=== PATIENT | male | born 1995 | race American Indian/Alaskan Native ===

== ENCOUNTER 2017-06-26 02:03 | Emergency (ER) | payer OTHER ==
[2017-06-26] MEDS ORDERED: GEODON IM ONE ×2 (02:29)
[2017-06-26 03:33] LABS: Basophils % (Auto) 0.6 % (0.0-1.8); Eosinophils % (Auto) 0.6 % (0.0-4.3); Hemoglobin 15.9 gm/dl (11.8-15.2); Lymphocytes # (Auto) 1.6 K/mm3 (1.2-5.4); Mean Corpuscular HGB Conc 34 % (32-34); Mean Corpuscular Hemoglobin 28 pg (28-32); Mean Corpuscular Volume 84 fl (84-94); Monocytes # (Auto) 0.3 K/mm3 (0.0-0.8); Monocytes % (Auto) 4.2 % (0.0-7.3); Platelet Count 202 K/mm3 (140-440); Red Blood Count 5.62 M/mm3 (3.65-5.03); Red Cell Distribution Width 13.8 % (13.2-15.2)
[2017-06-26 03:45] LABS: Bilirubin,Urine NEG (Negative); Blood,Urine SM (Negative); Color,Urine Straw (Yellow); Protein,Urine <15 mg/dL mg/dL (Negative); Urobilinogen,Urine < 2.0 mg/dL (<2.0); WBC,Urine < 1.0 /HPF (0.0-6.0)
[2017-06-26 03:47] LABS: BUN/Creatinine Ratio 9; Blood Urea Nitrogen 6 mg/dL (9-20); Calcium 8.8 mg/dL (8.4-10.2); Hemolysis Index 8
[2017-06-26 04:11] LABS: Amphetamine Screen,Urine PRESUMPTIVE NEGATIVE; Benzodiazepines Screen,Urine PRESUMPTIVE NEGATIVE; Cocaine Screen,Urine PRESUMPTIVE NEGATIVE; Methadone Screen,Urine PRESUMPTIVE NEGATIVE; Opiate Screen,Urine PRESUMPTIVE NEGATIVE
[2017-06-26 05:12] LABS: Cannabinoid Screen,Urine PRESUMPTIVE POSITIVE
--- NOTE | 2017-06-26 05:25 | Emergency Department Report ---
ED Psych HPI - General Stated Complaint: MENTAL HEALTH Time Seen by Provider: 06/26/17 02:28 Source: patient, police - History of Present Illness Initial Comments: Khris is a 21-year-old male with history of bipolar affective disorder and Tourette syndrome. His family called 911. Police brought him to the ER. He has persistent thoughts of suicide. "I don't want to live anymore. I don't want to be here anymore. I just want to leave. No one has to worry about me. My family does not care about me." He denies any physical complaints. He denies any homicidal ideation. - Related Data Home Medications Medication Instructions Recorded Confirmed Last Taken Unobtainable 06/26/17 06/26/17 Unknown Allergies Allergy/AdvReac Type Severity Reaction Status Date / Time No Known Allergies Allergy Verified 06/26/17 02:52 ED Review of Systems ROS: Stated complaint: MENTAL HEALTH Other details as noted in HPI Comment: All other systems reviewed and negative Constitutional: denies: chills, fever ENT: denies: throat pain Respiratory: denies: cough, shortness of breath Cardiovascular: denies: chest pain Endocrine: no symptoms reported Gastrointestinal: denies: abdominal pain, nausea, diarrhea Musculoskeletal: denies: back pain Neurological: denies: headache, weakness, paresthesias ED Past Medical Hx - Medications Home Medications: Home Medications Medication Instructions Recorded Confirmed Last Taken Type Unobtainable 06/26/17 06/26/17 Unknown History ED Physical Exam - General General appearance: alert, in no apparent distress - Head Head exam: Present: atraumatic, normocephalic - Eye Eye exam: Present: normal appearance - ENT ENT exam: Present: mucous membranes moist - Neck Neck exam: Present: normal inspection - Respiratory Respiratory exam: Present: normal lung sounds bilaterally. Absent: respiratory distress, wheezes, rales, rhonchi - Cardiovascular Cardiovascular Exam: Present: regular rate, normal rhythm. Absent: systolic murmur, diastolic murmur, rubs, gallop - GI/Abdominal GI/Abdominal exam: Present: soft, normal bowel sounds. Absent: distended, tenderness, guarding, rebound - Rectal Rectal exam: Present: deferred - Extremities Exam Extremities exam: Present: normal inspection - Back Exam Back exam: Present: normal inspection - Neurological Exam Neurological exam: Present: alert, oriented X3 - Psychiatric Psychiatric exam: Present: agitated, suicidal ideation - Skin Skin exam: Present: warm, dry, intact, normal color. Absent: rash ED Medical Decision Making - Lab Data Result diagrams: 06/26/17 03:15 06/26/17 03:15 Mr. North attempted to elope immediately upon arrival to the ER. He required chemical sedation for restraint. He is now sedated but protecting airway. Will need mental health assessment. Placed on 1013 with precautions. He is medically clear for psychiatric care. Critical care attestation.: If time is entered above; I have spent that time in minutes in the direct care of this critically ill patient, excluding procedure time. ED Disposition Clinical Impression: Suicidal ideation Disposition: [id number]/TX-[id number] PSY HOSP/PSY UNIT Is pt being admited?: No Does the pt Need Aspirin: No Condition: Stable
[2017-06-26] MEDS ORDERED: HABITROL TD ONE (17:00)
--- NOTE | 2017-06-27 13:35 | Consultation ---
History of Present Illness - Reason for Consult Consult date: 06/27/17 Reason for consult: Mental Health Evaluation Requesting physician: ANTHONY GUZMAN - Chief Complaint Chief complaint: "I am good" - History of Present Psychiatric Illness 21 y.o. male presenting to the ER for SI's. Today the patient is calm and cooperative during the assessment. He stated that he go into a argument with aunt and became upset. He denies making any statement about wanting to kill himself. He stated an hx of depression because he is . He stated that he feel sad and depressed because he struggle trying to live as a "black man." He stated that he socially smoke marijuana, but denies alcohol consumption (etoh ). He rate his depression 6/10, with 10 being the worse. He stated that he has a lot to live for. He denies SI/HI's and AVH's. He denies erratic sleep and a poor appetite. He stated that he took Zoloft for depression and Abilify for tourette's. He stated that he stop taking the Abilify, because he experienced side effects of the medication. Medications and Allergies Allergies Allergy/AdvReac Type Severity Reaction Status Date / Time No Known Allergies Allergy Verified 06/26/17 02:52 Home Medications Medication Instructions Recorded Confirmed Last Taken Type Unobtainable 06/26/17 06/26/17 Unknown History Past psychiatric history - Past Medical History Past Medical History: other (Tourettes) Past Surgical History: No surgical history - past Psychiatric treatment and history psychiatric treatment history: A hx of depression. Denies a fam psy hx. Hx of Depression. The patient denies a fam psy hx. - Social History Social history: lives with family Mental Status Exam - Vital signs Last Vital Signs Temp 98.6 F 06/27/17 10:39 Pulse 76 06/27/17 10:39 Resp 16 06/27/17 10:39 BP 136/87 06/27/17 10:39 Pulse Ox 98 06/27/17 10:39 - Exam Narrative exam: MSE: Appearance: calm, cooperative Behavior: regular eye contact Speech: regular rate and tone Mood: "depressed" Affect: congruent to mood Thought Process: circumstantial Thought Content: denies SI/HI's and AVH's Motor Activity: ambulatory, involuntary movement (Tourette's) Cognition: A/O x 3 Insight: variable Judgment: variable Results Result Diagrams: 06/26/17 03:15 06/26/17 03:15 All other labs normal. Assessment and Plan Assessment and plan: Impression: MDD. Hx of Tourette Syndrome. Cannabis Use DO. Today the patient is calm and cooperative during the assessment. Ddx: R/o Bipolar DO, R/O Substance Induced Mood DO Recommendation/Plan: Continue 1013 and gather collateral information to determine proper dispo. Start Zololf 50 mg PO Daily for depression and Risperdal 0.5 mg PO HS for Tourette Syndrome. Discussed possible metabolic side effects of Risperdal with patient. Also, discussed possible suicidality/ medication induced shravan with patient reference Zoloft.
[2017-06-27] MEDS: ZOLOFT PO SCH (17:37)
[2017-06-27] MEDS: RisperDAL PO SCH (22:04)
[2017-06-28] MEDS: ZOLOFT PO SCH (10:05)
[2017-06-28] MEDS ORDERED: HABITROL TD ONE (11:02)
--- NOTE | 2017-06-28 12:19 | Progress Note ---
Subjective - Reason for Consult Consult date: 06/28/17 Reason for consult: Psychiatry Follow-up - Chief Complaint Chief complaint: "Why I can't go home" 21 y.o. male presenting to the ER for SI's. Today the patient is irritable during the assessment after he was informed of his acceptance at [facility]. He stated in a loud voice that he didn't want to talk anymore. Mental Status Exam - Vital signs Last Vital Signs Temp 98.6 F 06/27/17 10:39 Pulse 55 L 06/28/17 08:40 Resp 17 06/28/17 08:40 BP 137/68 06/28/17 08:40 Pulse Ox 98 06/28/17 08:40 - Exam Narrative exam: MSE: Appearance: irritable Behavior: regular eye contact Speech: loud tone Mood: unable to assess Affect: congruent to mood Thought Process: circumstantial Thought Content: unable to assess Motor Activity: ambulatory Cognition: A/O x 3 Insight: unable to assess Judgment: unable to assess Assessment and Plan Impression: MDD. Hx of Tourette Syndrome. Cannabis Use DO. Today the patient is irritable during the assessment. Ddx: R/o Bipolar DO, R/O Substance Induced Mood DO Recommendation/Plan: Continue 1013 with placement to [facility] pending transport time. Continue Zoloft 50 mg PO Daily for depression and Risperdal 0.5 mg PO HS for Tourette Syndrome. Discussed possible metabolic side effects of Risperdal with patient. Also, discussed possible suicidality/medication induced shravan with patient reference Zoloft.
[2017-06-28] MEDS ORDERED: RisperDAL ONE (21:20)
[2017-06-28] MEDS: RisperDAL PO SCH (22:21)
[2017-06-29] MEDS: ZOLOFT PO SCH (10:40)
[2017-06-29 12:35] VITALS: BP 136/91
[2017-06-29] MEDS ORDERED: HABITROL TD ONE (13:04)
--- NOTE | 2017-06-29 14:26 | Progress Note ---
Subjective - Reason for Consult Consult date: 06/29/17 Reason for consult: Psychiatric Follow-up Evaluation - Chief Complaint Chief complaint: "I'm blessed."" Khris is a 21 year old male who presents to the ER for suicidal ideation. He has no PPHx. Today the patient is calm, cooperative, and compliant. Provider spoke with aunt Makenna Ngo at [phone]. She states " Khris is a good kid. This whole thing was blown out of proportion. We just had an argument because he did not want to come in the house. We miss him and we're ready for him to come back home." She verbalizes that patient does not have access to any weapons. Patient denies SI/HI, A/VH, and delusions. Mental Status Exam - Vital signs Last Vital Signs Temp 97.8 F 06/29/17 08:15 Pulse 113 H 06/29/17 08:15 Resp 16 06/29/17 08:30 BP 136/91 06/29/17 08:15 Pulse Ox 98 06/29/17 08:30 - Exam Narrative exam: Mental status exam: Appearance: Casually dressed-hospital gown Attitude/ Behavior: Cooperative Sensorium: Clear Orientation: Alert and oriented x 4 (person, place, time, and situation) Psychomotor and Musculoskeletal Activity: Ambulatory Speech/Language: Normal rate and tone Mood: "Blessed." Affect: Congruent to mood Thought Process: Organized but Circumstantial Thought Content: Reality Oriented Perception: Patient denies Insight: Fair Judgment: Fair Assessment and Plan Impression: MDD. Hx of Tourette Syndrome. Cannabis Use DO. Patient has no PPHx.Today the patient is calm, cooperative, and compliant. He denies SI/HI, A/ VH, and delusions. Per collateral, Makenna Huber ([phone]), it is safe for patient to return home. He has no access to weapons. At the time of discharge patient is in no danger to self or others. Discussed alternatives and coping skills when angry/depressed. Patient verbalized full understanding. Provider spoke with previous provider via phone to ensure congruent assessments. DDx: R/o Bipolar DO, R/O Substance Induced Mood DO Recommendation/Plan: 1. Rescind 1013. 2. Continue Zoloft 50 mg PO Daily for depression and Risperdal 0.5 mg PO HS for Tourette Syndrome. 3. Discussed possible metabolic side effects of Risperdal with patient. Also, discussed possible suicidality/medication induced shravan with patient reference Yesi. Patient verbalizes understanding.
--- NOTE | 2017-06-29 19:58 | Emergency Department Report ---
Blank Doc - Documentation Documentation: I was asked to evaluate Mr. North for possible discharge. Patient was admitted here for suicidal ideation. Patient today is calm. He denied suicidal or homicidal ideation. No visual or auditory hallucination. Patient has been assisted by our psychiatric team and they recommend outpatient treatment. Patient and family are okay with that. Patient will be discharged home tonight.
== END 2017-06-29 20:10 ==
LOC: EEVIPCON 02:03 → ED 02:03
DX: R45.851 Suicidal ideations (principal)
CPT/HCPCS: 36415; 80048; 80307; 81001; 85025; 96372; 99285; G0480; J3486; 80320